=== PATIENT | female | born 1965 | race African-American/Black ===

== ENCOUNTER 2020-12-20 23:51 | Emergency (ER) | payer BC, MEDICAID ==
[~2020-12-20] VITALS: Ht 162.6 cm; Wt 63.5 kg
[2020-12-21] VITALS: BP_SYST 130
--- NOTE | 2020-12-21 01:26 | NUR ---
Patient to ER bed 5 to gown for evaluation. Side rails up. Report given to Randy SOLORIO.
--- NOTE | 2020-12-21 01:26 | NUR ---
Received patient to ER w/ c/o possible f.b. (contact lens) stuck in left eye. Right no injury or redness noted. Left eye appears irritated and mildy erythemic but no f.b. can be seen by visual inspection. Introduced self to patient, positioned for comfort. continue to monitor. Patient resting quietly. No acute distress noted. Vital signs within normal range.
--- NOTE | 2020-12-21 02:27 | NUR ---
eye kit to bedside
[2020-12-21 02:56] VITALS: BP_SYST 116
--- NOTE | 2020-12-21 02:57 | NUR ---
Patient resting quietly. No acute distress noted. Vital signs within normal range.
[2020-12-21] MEDS ORDERED: TOBR3.5O2 EACH EYE (03:31)
[2020-12-21] MEDS ORDERED: HYDR-3917 PO (03:31)
--- NOTE | 2020-12-21 03:45 | NUR ---
Medicated w/ Erythromycin base eye ointment per MD orders. Will cont to monitor and observe for any adverse reaction. bed to low position sr up, continue to monitor.
[2020-12-21] MEDS ORDERED: ERYTHROMYCIN BASE 0.5% EYE OINT...G. ONE (03:46)
--- NOTE | 2020-12-21 04:05 | NUR ---
Patient given written and verbal discharge instructions and verbalizes understanding. ER MD discussed with patient the results and treatment provided. Patient in stable condition. ID arm band removed. Rx of Otis and Tobramycin eye ointment given. Patient educated on pain management and to follow up with PMD. Pain Scale 0. Opportunity for questions provided and answered. Medication side effect fact sheet provided.
== END 2020-12-21 04:05 | disposition home or self-care (01) ==
LOC: SED 23:51
DX: B30.8 Other viral conjunctivitis (principal)
CPT/HCPCS: 99283

== ENCOUNTER 2021-09-09 11:13 | Emergency (ER) | payer BC, MEDICAID ==
[~2021-09-09] VITALS: Ht 165.1 cm; Wt 61.2 kg
[~2021-09-09 11:13] MED LIST: HYDR-3917 PO; TOBR3.5O2 EACH EYE
--- NOTE | 2021-09-09 11:20 | NUR ---
Placed in room 06 . Placed on director of cardiac cath lab, blood pressure machine and pulse oximeter. To gown for exam. Side rails up.
[2021-09-09 11:21] VITALS: BP_SYST 128
--- NOTE | 2021-09-09 11:36 | NUR ---
pt. came in with c/o ringing in the ears, stated felt sick last week and had 2 days of ringing in the ears which resolved but started again yesterday, pt. states no longer feels sick but not back to 100% either, denies pain in ears states it more as an irritation.
--- NOTE | 2021-09-09 11:44 | NUR ---
ER at bedside examining patient.
--- NOTE | 2021-09-09 11:51 | NUR ---
Patient transported to radiology via wheelchair, accompanied by staff.
[2021-09-09] MEDS ORDERED: CETI1TAB2 PO (12:54)
--- NOTE | 2021-09-09 13:14 | NUR ---
Patient given written and verbal discharge instructions and verbalizes understanding. ER MD Lawrence discussed with patient the results and treatment provided. Patient in stable condition. ID arm band removed. no active bleeding. Rx of zyrtec given. Patient educated on pain management and to follow up with PMD. Pain Scale . Opportunity for questions provided and answered. Medication side effect fact sheet provided.
[2021-09-09 13:28] VITALS: BP_SYST 100
== END 2021-09-09 13:14 | disposition home or self-care (01) ==
LOC: SED 11:13
DX: H93.13 Tinnitus, bilateral (principal); Z79.899 Other long term (current) drug therapy
CPT/HCPCS: 70450-TC; 76376; 99284

== ENCOUNTER 2023-02-20 07:01 | Emergency (ER) | payer BC, MEDICAID ==
[~2023-02-20] VITALS: Ht 162.6 cm; Wt 68.0 kg
[~2023-02-20 07:01] MED LIST changes: +CETI1TAB2 PO
[2023-02-20 07:06] VITALS: BP_SYST 123; PULSE 88; RESP 18; TEMP 97.5; O2SAT 99
[2023-02-20] MEDS ORDERED: LIDOCAINE PATCH 5% 1 EA TP ONE (07:45)
[2023-02-20] MEDS ORDERED: KETOROLAC TROMETHAMINE 30 MG VIAL IM ONE (07:45)
[2023-02-20] MEDS ORDERED: IBUP-1969 PO (09:12)
[2023-02-20] MEDS ORDERED: CYCL10TA24 PO (09:12)
[2023-02-20] MEDS ORDERED: LIDO1ADH77 TD (09:12)
[2023-02-20 09:53] VITALS: BP_SYST 123; PULSE 83; RESP 16; TEMP 98.5; O2SAT 100
== END 2023-02-20 10:02 | disposition home or self-care (01) ==
LOC: SED 07:01
DX: S43.401A Unspecified sprain of right shoulder joint, initial encounter (principal); M54.10 Radiculopathy, site unspecified; Z79.899 Other long term (current) drug therapy; X58.XXXA Exposure to other specified factors, initial encounter; Y93.89 Activity, other specified; Y92.89 Other specified places as the place of occurrence of the external cause; Y99.8 Other external cause status
CPT/HCPCS: 99283; 73030; 96372; J1885